=== PATIENT | male | born 1985 | race Caucasian/White ===

== ENCOUNTER 2017-04-17 13:56 | Emergency (ER) | payer BC, OTHER ==
[2017-04-17 14:08] VITALS: BP 144/79
--- NOTE | 2017-04-17 14:18 | EDM.PDOC ---
ED HPI GENERAL MEDICAL PROBLEM - General Chief Complaint: Lower Extremity Injury/Pain Stated Complaint: POSSIBLE BROKEN ANKLE Time Seen by Provider: 04/17/17 14:02 Source of Information: Reports: Patient, Family, RN, RN Notes Reviewed History Limitations: Reports: No Limitations - History of Present Illness INITIAL COMMENTS - FREE TEXT/NARRATIVE: Patient presents to the ED at [facility] complaining of right ankle swelling and pain. Patient states he climbed up a ladder to exit his basement through a window, jumped out and landed on his right foot causing an inversion injury. Fall was approximately 5 feet. Patient denies any previous injury or trauma. No previous right foot/ankle surgeries. Patient complains of some numbness of the right foot. Patient states he is unable to bare weight at this time. Onset: Today Duration: Constant Location: Reports: Lower Extremity, Right Quality: Reports: Throbbing Severity: Moderate Improves with: Reports: Rest Worsens with: Reports: Movement Context: Reports: Trauma Associated Symptoms: Reports: No Other Symptoms Right Ankle Pain Score (Numeric/FACES): 5 - Related Data Allergies Allergy/AdvReac Type Severity Reaction Status Date / Time No Known Allergies Allergy Verified 04/17/17 14:11 Home Meds: Home Meds Acetaminophen [Tylenol] 500 mg PO BEDTIME PRN 02/11/14 [History] Acetaminophen/Caffeine [Excedrin Tension Headache] 2 tab PO PRN 02/11/14 [ History] SUMAtriptan Succinate [Imitrex] 100 mg PO ASDIRECTED PRN 02/11/14 [History] diphenhydrAMINE [Benadryl] 25 mg PO BEDTIME PRN 02/11/14 [History] Past Medical History Genitourinary History: Reports: Prostate Disorder Social & Family History - Tobacco Use Smoking Status *Q: Never Smoker - Alcohol Use Days Per Week of Alcohol Use: 0 - Recreational Drug Use Recreational Drug Use: No Review of Systems - Review of Systems Review Of Systems: See Below Constitutional: Denies: Chills, Fever, Weakness Respiratory: Denies: Shortness of Breath, Cough Cardiovascular: Denies: Chest Pain, Palpitations Musculoskeletal: Reports: Foot Pain, Joint Pain, Joint Swelling Skin: Reports: No Symptoms Neurological: Reports: Numbness (right foot). Denies: Headache, Paresthesia, Tingling ED EXAM, GENERAL - Physical Exam Exam: See Below Exam Limited By: No Limitations General Appearance: Alert, No Apparent Distress Head: Atraumatic, Normocephalic Neck: Supple Respiratory/Chest: No Respiratory Distress, Lungs Clear, Normal Breath Sounds Cardiovascular: Regular Rate, Rhythm Peripheral Pulses: 2+: Posterior Tibial (L), Dorsalis Pedis (L) Extremities: Joint Swelling, Limited Range of Motion, Other (swelling of the right lateral malleolus; tender to palpation; skin cool to touch; able to move toes without problems; no joint laxity) Neurological: Alert, Oriented Skin Exam: Warm, Dry, Intact, Normal Color, No Rash Course - Vital Signs Last Recorded V/S: Last Vital Signs Temp 37.7 C 04/17/17 14:02 Pulse 87 04/17/17 14:02 Resp 18 04/17/17 14:02 BP 144/79 H 04/17/17 14:02 Pulse Ox 96 04/17/17 14:02 - Orders/Labs/Meds Orders: Active Orders 24 hr Category Date Time Status Ankle Min 3V Rt [CR] Stat Exams 04/17/17 14:18 Taken DME for Discharge [COMM] Routine Oth 04/17/17 14:57 Ordered - Radiology Interpretation Free Text/Narrative:: No acute fracture or dislocation of right ankle - see scanned document in EMR Departure - Departure Time of Disposition: 14:53 Disposition: Home, Self-Care 01 Condition: good Clinical Impression: Right ankle sprain Qualifiers: Encounter type: initial encounter Involved ligament of ankle: unspecified ligament Qualified Code(s): S93.401A - Sprain of unspecified ligament of right ankle, initial encounter Right ankle injury Qualifiers: Encounter type: initial encounter Qualified Code(s): S99.911A - Unspecified injury of right ankle, initial encounter Fall Qualifiers: Encounter type: initial encounter Qualified Code(s): W19.XXXA - Unspecified fall, initial encounter - Discharge Information Instructions: Ankle Sprain Referrals: Solange Arnold NP [Primary Care Provider] - Forms: ED Department Discharge Additional Instructions: 1. Stay well hydrated and rest 2. Rest, elevate, and ice right ankle several times a day 3. Keep KENN wrap on for support and help control swelling 4. May alternate Tylenol/Advil as needed for discomfort 5. See your Primary as symptoms warrant - Problem List Review Problem List Initiated/Reviewed/Updated: Yes - My Orders Last 24 Hours: My Active Orders 04/17/17 14:18 Ankle Min 3V Rt [CR] Stat 04/17/17 14:57 DME for Discharge [COMM] Routine - Assessment/Plan Last 24 Hours: My Active Orders 04/17/17 14:18 Ankle Min 3V Rt [CR] Stat 04/17/17 14:57 DME for Discharge [COMM] Routine
== END 2017-04-17 15:10 | disposition home or self-care (01) ==
LOC: VM.ED 13:56
DX: S92.141A Displaced dome fracture of right talus, initial encounter for closed fracture (principal); W17.89XA Other fall from one level to another, initial encounter
CPT/HCPCS: 73610-RT; 99283

== ENCOUNTER 2024-07-07 12:16 | Emergency (ER) | payer OTHER ==
[2024-07-07 12:41] LABS: BASOPHILS PERCENT AUTO 0.3 % (0.2-1.2); EOSINOPHILS ABSOLUTE AUTO 0.1 x10^3/uL (0.0-0.5); EOSINOPHILS PERCENT AUTO 1.2 % (0.0-4.0); HEMATOCRIT 45.8 % (40.0-52.0); HEMOGLOBIN 16.2 g/dL (14.0-18.0); IMMATURE GRAN ABSOLUTE AUTO 0.02 x10^3/uL (0.00-0.07); LYMPHOCYTES ABSOLUTE AUTO 2.3 x10^3/uL (1.0-4.8); LYMPHOCYTES PERCENT AUTO 33.7 % (25.0-50.0); MEAN CORPUSCULAR HEMOGLOBIN 31.4 pg (26.0-32.0); MEAN CORPUSCULAR HGB CONC 35.4 g/dL (32.0-36.0); MEAN CORPUSCULAR VOLUME 88.8 fL (78.0-93.0); MONOCYTES ABSOLUTE AUTO 0.5 x10^3/uL (0.0-0.8); MONOCYTES PERCENT AUTO 7.8 % (2.0-11.0); NEUTROPHILS ABSOLUTE AUTO 3.9 x10^3/uL (1.8-7.7); NEUTROPHILS PERCENT AUTO 56.7 % (50.0-80.0); PLATELET COUNT,PLT 232 x10^3/uL (130-400); RED BLOOD CELL COUNT 5.16 x10^6/uL (4.5-6.0); WHITE BLOOD CELL COUNT,WBC 6.9 x10^3/uL (4.0-10.0)
[2024-07-07 12:48] LABS: APPEARANCE,URINE CLEAR (CLEAR); BILIRUBIN,URINE POC NEGATIVE (NEGATIVE); COLOR,URINE POC STRAW (YELLOW); GLUCOSE,URINE POC NEGATIVE (NEGATIVE); KETONES,URINE POC NEGATIVE (NEGATIVE); LEUKOCYTE ESTERASE,URINE POC NEGATIVE (NEGATIVE); NITRITE,URINE POC NEGATIVE (NEGATIVE); OCCULT BLOOD,URINE POC NEGATIVE (NEGATIVE); PH,URINE 5.5 (5.0-8.0); PROTEIN,URINE POC NEGATIVE (NEGATIVE); UROBILINOGEN,URINE POC 0.2 (0.2)
[2024-07-07] MEDS: Ondansetron 4 MG/2 ML SDV IVPUSH ONE (12:58)
[2024-07-07] MEDS: Ketorolac 30 MG/ML SDV IVPUSH ONE (12:58)
[2024-07-07 13:02] LABS: A/G RATIO 1.44; ALBUMIN 4.6 g/dL (3.4-5.0); BILIRUBIN TOTAL 1.2 mg/dL (0.2-1.0); CALCIUM 9.3 mg/dL (8.5-10.1); CREATININE 0.9 mg/dL (0.70-1.30); EST CRCL DRUG DOSING (CG) 114.91 mL/min; POTASSIUM,K 4.2 mmol/L (3.5-5.1); PROTEIN TOTAL,TP 7.8 g/dL (6.4-8.2)
[2024-07-07 13:04] LABS: ANION GAP 14.2 mmol/L (5-15)
[2024-07-07] MEDS: Take Home: Ondansetron 4 MG Tab.DIS, 5 Tab Pack PO ONE (13:31)
== END 2024-07-07 13:31 ==
LOC: VM.ED 12:16
DX: R10.10 Upper abdominal pain, unspecified (principal); R11.0 Nausea; Z79.899 Other long term (current) drug therapy
CPT/HCPCS: 80053; 81002; 83690; 85025; 96374; 96375; 99284; 99284-25; J1885; J2405; Q0162